=== PATIENT | female | born 1980 | race Caucasian/White ===

== ENCOUNTER 2019-04-21 08:40 | Emergency (ER) | payer OTHER, SELFPAY ==
[2019-03-01 14:29] VITALS: BMI 48.9
[2019-04-21 08:41] VITALS: BP 124/69; PULSE 70; RESP 18; TEMP 36.6; O2SAT 100; BMI 48.9
--- NOTE | 2019-04-21 08:59 | ED.VIS.LOWEX ---
History of Present Illness Chief Complaint: Lower Extremity Injury Informant: Patient Occurred: Today Mechanism/Context: Fall, Trip Onset: Today Context: Sudden Onset Associated Symptoms: Negative for: Parasthesia, Weakness, Loss of Funtion Narrative: Patient is a 39-year-old female with no significant past medical history presenting with injury to her left ankle. Patient states she tripped on some shoes that she was trying leave the house this morning and twisted her left ankle. She did fall when this happened. She not hit her head. She is not on any anticoagulation. She is had a hard time ambulating secondary to severe pain whenever she tries to put weight on her left ankle. She denies any other injuries or pain at this time. She not take anything for pain prior to arrival. She denies any prior ankle injuries. Past Medical History - Allergies and Home Meds Allergies/Adverse Reactions: Allergies No Known Allergies Allergy (Verified 04/21/19 08:44) Primary Care Physician: Andrei Castillo MD [Primary Care Provider] - Past Medical History: - - Anemia, headaches, seasonal allergies Surgical History: noncontributory Smoking Status: Never smoker Review of Systems General: Denies: Chills, Fever, Sweats Eyes: Denies: Visual changes - bilaterally, Diplopia ENT: Denies: Rhinorrhea, Sore throat Cardiovascular: Denies: Chest pain, Palpitations Respiratory: Denies: Dyspnea, Cough, Dyspnea on exertion Gastrointestinal: Denies: Abdominal pain, Nausea, Vomiting, Diarrhea, Melena, Hematochezia Genitourinary: Denies: Dysuria, Hematuria, Frequency Musculoskeletal: Reports: Extremity Pain - Left ankle. Denies: Back pain, Swelling Skin: Denies: Rash, Wounds Neurological: Denies: Headache, Weakness, Numbness Physical Exam Vital Signs/Narrative: Vital Signs Temp Pulse Resp BP Pulse Ox 04/21/19 08:41 97.9 F 70 18 124/69 H 100 Inital Vital Signs reviewed: Yes - Extremity Exam Left Hip: Negative for: Deformity, Limited ROM Left Femur: Negative for: Contusion, Deformity, Limited ROM Left Knee: Negative for: Contusion, Deformity, Edema, Limited ROM Left Tib Fib: - - No pain to palpation over the proximal fibular head. Negative for: Contusion, Deformity, Edema, Limited ROM Left Ankle: Limited ROM - Secondary to pain, - - No pinpoint tenderness to palpation of the medial lateral malleolus however patient does have tenderness palpation anterior to the lateral malleolus. Normal Simmons test. Negative for: Deformity, Edema Left Foot: - - Tenderness palpation over the base of the fifth meta tarsal. Negative for: Deformity, Edema, Limited ROM General: Well nourished, Well developed Head: Normocephalic, Atraumatic Eyes: Perrl, EOMI ENT: No Trauma, Moist Mucous Membranes Neck: Full ROM Cardiovascular: Regular rate, Regular rhythm, No murmurs, - - 2+ bilateral DP and PT pulses, brisk capillary refill Respiratory: No distress, CTA bilaterally, Chest nontender Skin: Normal color, No rash Neurological: Alert, Oriented x3, Cranial nerves II-XII grossly intact, Normal Strength, Normal Sensation Psychological: Normal affect Diagnostic/Tx/Re-eval - Medical Decision Making Patient evaluated for left ankle injury. Does not have any fracture on x-ray as reviewed by myself. Likely a sprain. Is given an air splint. Neuro vastly intact. No injury to the Achilles tendon is appreciated. Given Motrin for pain control. Given work note for today to be used as needed. Patient is counseled on signs and symptoms requiring return to the emergency room. Patient verbalizes agreement and understand this plan. Patient discharged home in stable and improved condition. ED Disposition - Plan for ED Patient: Diagnosis: Left ankle sprain Instructions: Sprain, Ankle, with X-Ray Prescriptions: Ibuprofen [Motrin] 600 mg PO Q6H PRN PRN #20 tab PRN Reason: Pain/Inflammation Prescription Printed Referrals: Andrei Castillo MD [Primary Care Provider] -
--- NOTE | 2019-04-21 09:30 | RAD_ITS ---
STUDY: X-RAY - LEFT ANKLE REASON FOR EXAM: Female, 39 years old. Injury, pain, swelling TECHNIQUE: 3 view(s) of the ankle. COMPARISON: None. FINDINGS: Normal visualized distal tibia and fibula. Normal medial and lateral malleoli. Normal tibiotalar articulation and ankle mortise. Normal visualized talus and calcaneus. The visualized subtalar, talonavicular, calcaneocuboid and tarsal articulations are normal. Mild degree of soft tissue swelling. RAD/Ankle min 3 Views IMPRESSION: Mild degree of soft tissue swelling. Electronically Signed: Last Macias, at 9:46 EDT , Service support ,
[2019-04-21] MEDS: Ibuprofen 600 MG Tablet PO (10:30)
[2019-04-21 10:38] VITALS: RESP 16
== END 2019-04-21 10:44 | disposition home or self-care (01) ==
PROVIDERS: Emergency Provider Emergency Medicine; PCP Internal Medicine
DX: S93.402A Sprain of unspecified ligament of left ankle, initial encounter (principal); W01.0XXA Fall on same level from slipping, tripping and stumbling without subsequent striking against object, initial encounter; Y93.9 Activity, unspecified; Y92.009 Unspecified place in unspecified non-institutional (private) residence as the place of occurrence of the external cause; Y99.9 Unspecified external cause status
CPT/HCPCS: 73610; 99283

== ENCOUNTER → 2021-01-22 08:08 | Outpatient (CLI) | payer OTHER, SELFPAY | PROVIDERS: PCP Internal Medicine; Visit Provider Physician Assistant Surgical | DX: U07.1 COVID-19 (principal) | CPT/HCPCS: 87635; U0005; U0003 ==

== ENCOUNTER 2021-03-24 00:35 | Emergency (ER) | payer OTHER, SELFPAY ==
[2021-03-24 00:37] VITALS: BP 135/58; PULSE 100; RESP 17; TEMP 36.7; O2SAT 100; BMI 49.6
--- NOTE | 2021-03-24 00:58 | EKG12_ITS ---
Test Reason : PALPITATION Blood Pressure : / mmHG Vent. Rate : 097 BPM Atrial Rate : 097 BPM P-R Int : 138 ms QRS Dur : 092 ms QT Int : 368 ms P-R-T Axes : 041 025 037 degrees QTc Int : 467 ms Normal sinus rhythm Normal ECG Confirmed by CAROLYN OMER, JACK ([id number]), web content editor SARAH RODRIGUEZ ([id number]) on 03/26/2021 11:38:56 AM Referred By: MINOR Confirmed By:JACK LEON MD
--- NOTE | 2021-03-24 00:58 | RAD_ITS ---
EXAM: XR CHEST, 1 VIEW CLINICAL INDICATION: chest pain TECHNIQUE: Frontal view of the chest. This report was created using [employer] report generation technology. COMPARISON: 04/18/2016 FINDINGS: LUNGS AND PLEURAL SPACES: Unremarkable. No consolidation or edema. No pneumothorax. No effusion. HEART: Unremarkable. Cardiac silhouette not enlarged. MEDIASTINUM: Central airways and mediastinal contour are unremarkable. BONES/JOINTS: Unremarkable. SOFT TISSUES: Unremarkable. RAD/Chest 1 View (Portable) IMPRESSION: No radiographic evidence of acute cardiopulmonary disease. Electronically Signed: Marshall Nolan MD at 1:29 EST ,
[2021-03-24 01:11] VITALS: O2SAT 100
[2021-03-24] MEDS: 0.9% Normal Saline 1,000 ML 1000 ML IV (01:12)
[2021-03-24] MEDS: Aspirin 81 MG TAB.CHEW 324 MG PO (01:12)
[2021-03-24 01:20] LABS: Absolute Lymphocyte Count 0.99 X10^3/uL (0.83-4.51); Absolute Neutrophil Count 8.6 X10^3/uL (2.0-7.7); Basophil# 0.03 X10^3/uL; Basophil% 0.3 % (0-1); Eosinophil# 0.07 X10^3/uL; Eosinophils% 0.7 % (0-5); Hematocrit 36.9 % (37-47); Hemoglobin 12.2 g/dL (12.0-15.0); Lymphocyte # 0.99 X10^3/ul (0.83-4.51); Lymphocyte % 9.6 % (19-41); Mean Corp Hgb Conc 33.1 g/dL (32-36); Mean Corpuscular Hgb 29.9 pg (27.0-32.0); Mean Corpuscular Volume 90.4 fL (81-99); Mean Platelet Vol. 9.1 fl (6.2-12.0); Monocyte# 0.53 X10^3/uL; Monocyte% 5.2 % (0-10); NRBC Flagged by Analyzer 0 % (0-5); Neutrophil # 8.59 X10^3/uL (2.7-7.7); Neutrophil % 83.7 % (47-70); Platelet Count 197 K/mm3 (150-450); RBC Distribution Width CV 13.7 % (11.6-14.6); RBC Distribution Width SD 45.2 fl (35.1-43.9); Red Blood Count 4.08 M/mm3 (4.2-5.4); White Blood Count 10.3 K/mm3 (4.4-11.0)
--- NOTE | 2021-03-24 01:32 | ED.VIS.CHEST ---
HPI History of Present Illness Chief Complaint: Palpitations Informant: patient Narrative Narrative: Patient presents with some mild dyspnea and chest discomfort this evening. Is not there now. She had anterior chest discomfort feeling but not really pain. It did not radiate. It was not associated with nausea vomiting diaphoresis. There was some mild dyspnea with it. Patient is a non-smoker. She has no history of blood pressure diabetes or high cholesterol. She has never had heart disease. There is no heart disease in her family. She has no travel surgery immobilization personal family history of DVT or PE. Patient is also had some recent symptoms for the last 3 or so days. She just has not felt well. She has had ringing in her ears and she has had some mild diarrhea. But she has had no myalgias or cough or dyspnea or runny nose or loss of taste or smell. Nothing is really made the above symptoms specifically better or worse. She does not know anyone who is ill. [facility] Medical History Anemia Frequent headaches GI problem H/O emotional problems Seasonal allergies Home Medications NK 03/24/21 [History Last Taken Unknown] Allergy/AdvReac Type Severity Reaction Status Date / Time No Known Allergies Allergy Verified 03/24/21 00:36 Family History Grandmother Breast cancer Heart disease Cancer ovarian Grandfather Kidney disease Surgical History History of cholecystectomy History of tonsillectomy Social History Smoking Status: Never smoker alcohol intake: never substance use type: does not use frequency: 3-4 times per week ROS ROS ED Constitutional Constitutional ED: Reports other Details: Mild generalized malaise recently for about 3 days ; Denies fever(s) or subjective ENT ENT ED: Reports other Details: Ringing in the ear but no actual discomfort. ; Denies rhinorrhea or sore throat Cardiovascular Cardiovascular: Reports chest pain and other Details: I believe one of the triage notes had mentioned palpitations for a few days but she actually denied this when I asked her. ; Denies orthopnea, palpitations, paroxysmal nocturnal dyspnea or racing heartbeat Respiratory/Chest Respiratory/Chest: Reports dyspnea; Denies cough, dyspnea on exertion, orthopnea, paroxysmal nocturnal dyspnea or sputum Gastrointestinal Gastrointestinal: Reports diarrhea; Denies abdominal pain, nausea or vomiting Genitourinary Genitourinary ED: Denies dysuria Musculoskeletal Musculoskeletal: Denies myalgias Integumentary Denies rash Neurologic Neurologic: Denies headache(s), paresthesias or weakness Endocrine Endocrinology: Denies polydipsia or polyuria Hematologic/Lymphatic Hematologic/Lymphatic: Denies easy bleeding or easy bruising Allergic/Immunologic Allergic/Immunologic ED: Denies urticaria EXAM Physical Exam Const Vital Signs: 03/24/21 00:37 03/24/21 00:39 03/24/21 01:11 Temperature 98.0 F Temperature Source Temporal Pulse Rate 100 Respiratory Rate 17 Respiratory Effort Normal Respiratory Pattern Normal Blood Pressure 135/58 H Blood Pressure Mean 83 Pulse Ox 100 100 Oxygen Delivery Method Room Air Room Air 03/24/21 03:01 Temperature Temperature Source Pulse Rate 88 Respiratory Rate 16 Respiratory Effort Respiratory Pattern Blood Pressure 119/63 Blood Pressure Mean 81 Pulse Ox 100 Oxygen Delivery Method Room Air Positive well nourished, well developed and obese General Appearance ED: well developed and NAD Nutritional Appearance: obese HEENT Reports moist mucous membranes HEENT Narrative: Both ears do have a moderate amount of cerumen but no sign of infection. normocephalic and atraumatic Eyes PERRL and EOMs intact bilaterally General Eye ED: Negative for pale conjunctiva or scleral icterus Neck no JVD Chest Wall inspection of chest normal and palpation of chest normal Resp normal respiratory effort and clear to auscultation bilaterally Resp Narrative: Lungs are clear. Saturations are 100% on room air. Good deep breaths do not cause any discomfort Effort and Inspection: Negative for respiratory distress Auscultation: Negative for rales, rhonchi or wheezes Cardio regular rate, regular rhythm and no murmurs GI normal to inspection, nondistended, normoactive bowel sounds, soft to palpation and non-tender Back/Spine no CVA tenderness Extremity normal to inspection General Extremety ED: Negative for edema, pulses abnormal or tenderness General Extremity: Negative for edema or pulses abnormal Neuro Sensorium / Orientation: awake and alert Psych mental status grossly normal Skin no rashes or lesions noted and no wounds Heart Score History: Slightly/Non-Suspicious ECG: Normal Age: </= 45 years Risk Factors: 1 or 2 Risk Factors Troponin: </= Normal Limit Score: 1 MDM MDM MDM Narrative Medical decision making narrative: Initial labs show normal CBC including white count hemoglobin and platelets. Electrolytes show no marked abnormalities. Minimal elevation of chloride and glucose only. Troponin initially was normal. Chest x-ray showed no acute process. I talked options with the patient. I would like to repeat a troponin. Her heart score is only 1. It would be up to even if you consider her history moderately suspicious. In either case we can do a repeat troponin. This is pending at this time. Repeat troponin is negative. Patient still asymptomatic. We discussed reasons to return. We also discussed that is important for her to follow-up with her primary physician even if her symptoms resolve. Lab Data Attestation: I reviewed the patient's lab results. Labs: Laboratory Results - last 24 hr 03/24/21 03/24/21 03/24/21 01:03 01:03 03:00 WBC 10.3 RBC 4.08 L Hgb 12.2 Hct 36.9 L MCV 90.4 MCH 29.9 MCHC 33.1 RDW Std Deviation 45.2 H RDW Coeff of Vinny 13.7 Plt Count 197 MPV 9.1 Immature Gran % (Auto) 0.500 Neut % (Auto) 83.7 H Lymph % (Auto) 9.6 L Crawford % (Auto) 5.2 Eos % (Auto) 0.7 Baso % (Auto) 0.3 Absolute Neuts (auto) 8.6 H Absolute Lymphs (auto) 0.99 Nucleated RBC % 0 Sodium 138 Potassium 4.0 Chloride 109 H Carbon Dioxide 24.0 Anion Gap 5 BUN 10 Creatinine 0.81 Estim Creat Clear Calc 74.08 Est GFR (MDRD) Af Amer 99 Est GFR (MDRD) Non-Af 82 BUN/Creatinine Ratio 12.3 Glucose 113 H Calcium 8.5 Troponin I High Sens 3 4 Radiography Diagnostic Testing: Clinical Impression(s) from Imaging Studies Chest X-Ray 03/24/21 00:58 IMPRESSION: No radiographic evidence of acute cardiopulmonary disease. Electronically Signed: Marshall Nolan MD at 1:29 EST , EKG Initial EKG: Comments: EKG done for chest pain read by me shows normal sinus rhythm with a rate of 97. No ectopy. No acute ST elevation or depression. [place] interval, QRS duration and QTc are normal. Discharge Plan Triage Chief Complaint: Palpitations ED Provider: Chris Phillips Dx/Rx/DC Orders Clinical Impression: Chest pain, Intermittent diarrhea Instructions: ED Chest Pain, Uncertain Cause Prescriptions: No Action NK RF: 0 Primary Care Provider: Andrei Castillo Referrals: Andrei Castillo MD [Primary Care Provider] - 3-5 Days Disposition Disposition: Home, Self Care
[2021-03-24 01:37] LABS: Anion Gap 5 (5-15); BUN 10 mg/dL (7-18); BUN/Creat Ratio 12.3 RATIO (10-20); Calcium,Total 8.5 mg/dL (8.5-10.1); Chloride 109 mmol/L (98-107); Creatinine, Serum 0.81 mg/dL (0.55-1.02); EST Glomerular Filtration Rate 82 mL/min (>60); Est Glom Filt Rate - Afr Amer 99 mL/min (>60); Estimated Creatinine Clearance 74.08 ml/min; Glucose 113 mg/dL (74-106); Sodium Level 138 mmol/L (136-145); Troponin-I HS 3 pg/mL (3.0-54.0)
[2021-03-24 03:01] VITALS: BP 119/63; PULSE 88; RESP 16; O2SAT 100
[2021-03-24 03:55] LABS: Troponin-I HS 4 pg/mL (3.0-54.0)
[2021-03-24 04:06] VITALS: BP 124/71; PULSE 90; RESP 16; O2SAT 99
== END 2021-03-24 04:09 | disposition home or self-care (01) ==
PROVIDERS: Emergency Provider Emergency Medicine; PCP Internal Medicine; Visit Provider Emergency Medicine
DX: R07.9 Chest pain, unspecified (principal); R06.00 Dyspnea, unspecified; R19.7 Diarrhea, unspecified; H93.19 Tinnitus, unspecified ear; R00.2 Palpitations; E66.9 Obesity, unspecified
CPT/HCPCS: 71045; 80048; 84484; 85025; 93005; 96360; 99285; J7030; A4216

== ENCOUNTER 2021-03-26 09:06 | Outpatient (CLI) | payer OTHER, SELFPAY ==
[2021-03-26 12:37] LABS: T4 Free Direct 0.77 ng/dL (0.76-1.46); Thyroid Stim Hormone (TSH) 6.65 uIU/mL (0.358-3.74)
== END 2021-03-26 23:59 | disposition home or self-care (01) ==
LOC: BIMLAB 09:07
PROVIDERS: PCP Internal Medicine; Referring Provider Internal Medicine; Visit Provider Internal Medicine
DX: I49.9 Cardiac arrhythmia, unspecified (principal)
CPT/HCPCS: 36415; 84439; 84443

== ENCOUNTER 2021-04-17 13:01 | Outpatient (CLI) | payer OTHER, SELFPAY ==
--- NOTE | 2021-04-17 13:06 | ECHOD_ITS ---
Reason For Study: ARRHYTHMIA Procedure This was a 2D Doppler, Color Flow transthoracic echocardiogram. Exam performed in department. Left Ventricle Normal LV size. Left ventricular systolic function is normal. The estimated ejection fraction is 55 %. Normal diastology for age. No regional wall motion abnormalities noted. Right Ventricle Normal RV size. Normal systolic function. Atria Normal left atrium. Normal right atrium. Mitral Valve Normal mitral valve. Tricuspid Valve Normal tricuspid valve. Aortic Valve Normal aortic valve. Trisinus/trileaflet aortic valve. Pulmonic Valve Normal pulmonic valve. Great Vessels Normal aortic root. The pulmonary artery is normal size. Normal inferior vena cava. Pericardium/Pleural No pericardial effusion. MMode/2D Measurements & Calculations LVIDd: 4.4 cm IVSd: 0.86 cm Ao root diam: 2.8 cm LVIDs: 2.9 cm LVPWd: 0.83 cm RVDd: 3.1 cm FS: 35.3 % LAV(MOD-bp): 61.1 ml LA A4 area: 19.2 cm2 LA dimension(2D): 3.7 cm LAV(MOD-bp) Indexed: 27.5 ml/m2 LAV(MOD-sp2): 60.3 ml LAV(MOD-sp4): 61.0 ml RA A4 area: 15.4 cm2 Time Measurements MV dec time: 0.21 sec Doppler Measurements & Calculations MV E max anam: 98.4 cm/sec Lat Peak E' Anam: 15.3 cm/sec Med Peak E' Anam: 11.1 cm/sec MV A max anam: 56.3 cm/sec E/E' lat: 6.4 E/E' med: 8.9 MV E/A: 1.7 Ao V2 max: 129.3 cm/sec LV V1 max: 105.7 cm/sec Ao max P.7 mmHg LV V1 max P.5 mmHg ECHO/Echo Complete Interpretation Summary Normal LV size. Left ventricular systolic function is normal. The estimated ejection fraction is 55 %. Structurally normal valves. Ordering Physician: Andrei Castillo Referring Physician: Andrei Castillo Performed By: Alexus Peterson, IVA, RVT
== END 2021-04-17 23:59 | disposition home or self-care (01) ==
PROVIDERS: PCP Internal Medicine; Visit Provider Internal Medicine
DX: I49.9 Cardiac arrhythmia, unspecified (principal); R07.9 Chest pain, unspecified; U07.1 COVID-19
CPT/HCPCS: 93225; 93226; 93306